=== PATIENT | male | born 1940 | race Caucasian/White ===

== ENCOUNTER 2016-09-22 09:54 | Emergency (ER) | payer MEDICARE, OTHER ==
[~2016-09-22] VITALS: Ht 172.7 cm; Wt 95.3 kg
[2016-09-22] MEDS ORDERED: AVODART0.5 MG PO (18:18)
[2016-09-22] MEDS ORDERED: CITALOPRAM HBR20 MG PO (18:18)
[2016-09-22] MEDS ORDERED: FLONASE16 GM NASBOTH (18:19)
[2016-09-22] MEDS ORDERED: INCRUSE ELLI62.5 MCG INH (18:20)
[2016-09-22] MEDS ORDERED: ALLERGY RELIEF10 M1 PO (18:23)
[2016-09-22] MEDS ORDERED: TOPROL XL50 MG PO (18:24)
[2016-09-22] MEDS ORDERED: DAILY VALUE1 EACH PO (18:25)
[2016-09-22] MEDS ORDERED: TERAZOSIN HCL10 MG PO (18:27)
[2016-09-22] MEDS ORDERED: SYMBICORT 160-4.6 GM INH (18:27)
== END 2016-09-22 11:58 | disposition short-term general hospital (02) ==
LOC: ER 09:54
PROC: 0BH17EZ Insertion of Endotracheal Airway into Trachea, Via Natural or Artificial Opening (ICD-10-PCS; principal; 2016-09-22)
DX: I11.0 Hypertensive heart disease with heart failure (principal); I50.9 Heart failure, unspecified; J44.9 Chronic obstructive pulmonary disease, unspecified; H40.9 Unspecified glaucoma; M15.9 Polyosteoarthritis, unspecified; F32.9 Major depressive disorder, single episode, unspecified; Z87.891 Personal history of nicotine dependence; Z79.899 Other long term (current) drug therapy
CPT/HCPCS: J0330; J1265; J1940; J1956; J2060; J2250; J2930